=== PATIENT | female | born 1960 | race Caucasian/White ===

== ENCOUNTER → 2017-04-07 | Outpatient (CLI) | payer SELFPAY ==
--- NOTE | 2017-04-07 18:02 | DI ---
XR INJ PROCEDURE WRIST,04/07/2017 1:17 PM: Clinical History: Right wrist pain. Previous Exam: None at this facility. Procedure: Risks, alternatives and benefits were explained to the patient and informed written consen t obtained. The right wrist was placed pronated, and targeting was performed fluoroscopically. The right dorsum of the wrist was then prepped and draped in the usual sterile fashion, and 1% lidoca ine was used for local anesthesia. Under fluoroscopic guidance, the radiocarpal joint was injected with a dilute gadolinium/iodinated co ntrast solution. Findings: There is contrast noted within the radiocarpal joint. Impression: Successful right wrist arthrogram. Pathology pending.
--- NOTE | 2017-04-08 09:12 | DI ---
MRI UP EXTREMITY JNT W/MELVI,04/07/2017 1:14 PM: Clinical History: Pain in the right wrist. Previous Exam: None at this facility. Findings: Multiplanar MR images are obtained through the right wrist following the intra-articular administrati on of dilute gadolinium, and demonstrate anatomic alignment without fractures. There is a single 2 mm cyst within the ulna and 3 separate 2 mm cysts within the pisiform. There is no other abnormal marrow signal. There is no significant diastases of the scapholunate joint . The flexor and extensor tendons are unremarkable. The dorsal and volar radial styloid ligaments are intact. The meniscus homologue appears to be intact as well and there is no extension of contrast into the distal radial ulnar joint. The extensor carpi ulnaris tendon is intact. The hook of the hamate is intact. The carpal metacarpal joints are intact as well. Impression: Cystic changes along the undersurface of the pisiform near the fusiform triquetral joint. This could represent arthritis of the joint. Cannot completely rule out the possibility of early erosions. There is no evidence of synovitis at this time however.
== END ==
LOC: MRI 13:03
PROVIDERS: ATTEND Orthopaedic Surgery
DX: M25.531 Pain in right wrist (principal)
CPT/HCPCS: 25246; 73222; A9579